=== PATIENT | male | born 1985 | race Caucasian/White ===

== ENCOUNTER 2019-05-28 19:49 | Emergency (ER) | payer BC ==
[~2019-05-28] VITALS: Ht 172.7 cm; Wt 84.7 kg
[2019-05-28 19:53] VITALS: Ht 172.7 cm; Wt 84.7 kg
[2019-05-28] MEDS ORDERED: ALBUTEROL 0.083% (NEB) 2.5 MG/3 ML AMP NEB STA (21:23)
[2019-05-28] MEDS ORDERED: IPRATROPIUM (NEB) 0.5 MG/2.5 ML AMP NEB STA (21:23)
[2019-05-28] MEDS ORDERED: DEXAMETHASONE 10 MG/ML 1 ML INJ IM STA (21:23)
[2019-05-28] MEDS ORDERED: ACETAMINOPHEN 160 MG/5ML CUP PO STA (21:33)
--- NOTE | 2019-05-28 22:07 | ERD ---
ER Documentation Chief Complaint Chief Complaint RIGHT GROIN PAIN RADIATES TO LOWER ABD X2DAYS; NO OTHER GI S/S HPI 34-year-old male presenting to the ED for right groin pain cough x3 days. Patient denies any burning with urination denies any penile discharge lesions or sores. Patient denies any swelling. 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 Patient states he does smoke vape pen on daily basis. Patient denies any fever chills nausea vomiting. Patient states the pain is worse when he coughs. Patient states the pain is a 6 out of 10. Patient states this is never happened to him before. Patient states he has an allergy to penicillin. ROS All systems reviewed and are negative except as per history of present illness. Medications Home Meds Active Scripts Ibuprofen* (Motrin*) 600 Mg Tab, 600 MG PO Q6, #30 TAB Prov:CALOS BOYD PA-C 05/28/19 Oympwodwixw-S-Bxnmhgjqaf Hb* (Guaifenesin* DM Syrup) 120 Ml Syrup, 10 ML PO Q4H PRN for COUGH for 7 Days, ML Prov:CALOS BOYD PA-C 05/28/19 Albuterol Sulfate* (Proair HFA*) 8.5 Gm Hfa.aer.ad, 2 PUFF INH Q4, #1 INHALER Prov:CALOS BOYD PA-C 05/28/19 Allergies Allergies: Coded Allergies: Penicillins (Verified Allergy, Unknown, RASH, 05/28/19) PMhx/Soc Medical and Surgical Hx: pt denies Medical Hx, pt denies Surgical Hx Hx Alcohol Use: Yes (OCCASIONAL) Hx Substance Use: No Hx Tobacco Use: Yes Smoking Status: Former smoker FmHx Family History: No diabetes, No coronary disease, No other Physical Exam Vitals Vital Signs Date Temp Pulse Resp B/P (MAP) Pulse Ox O2 O2 Flow FiO2 Time Delivery Rate 05/29/19 98.0 55 20 125/85 95 Room Air 00:15 (98) 05/28/19 65 20 96 21 21:42 05/28/19 98.2 70 18 138/91 96 19:53 (107) Physical Exam Const: Moderate distress . Neck: Full range of motion. No meningismus. Resp: Bilateral wheeze Cardio: Regular rate and rhythm, no murmurs Abd: Soft, non tender, non distended. Normal bowel sounds Skin: No petechiae or rashes Back: No midline or flank tenderness no inguinal hernia palpated on examination. The testicles lie in the normal position and do not appear torsed, the patient has no pain to palpation. The patient is uncircumcised male and has no penile lesions or discharge. Results 24 hrs Current Medications Medications Dose Sig/[place] Start Time Status Last (Trade) Ordered Route PRN Stop Time Admin Dose Reason Admin Albuterol 5 mg ONCE STAT 05/28/19 DC 05/28/19 (Proventil NEB 21:23 21:38 0.083% (Neb)) 05/28/19 21:27 Ipratropium 1.5 mg ONCE STAT 05/28/19 DC 05/28/19 [place] NEB 21:23 21:39 (Atrovent 05/28/19 21:27 0.02% (Neb)) 10 mg ONCE STAT 05/28/19 DC 05/28/19 Dexamethasone IM 21:23 21:32 (Decadron) 05/28/19 21:27 1,000 mg ONCE STAT 05/28/19 Cancel Acetaminophen PO 21:33 (Tylenol 05/28/19 21:34 Liquid (Ped)) Procedures/MDM Diagnostic imaging: Read by radiologist Ankita Mari, PROCEDURE: XR Chest. CLINICAL INDICATION: Cough and wheezing TECHNIQUE: PA and Lateral views of the chest were obtained. COMPARISON: None. FINDINGS: Cardiomediastinal silhouette is normal. Pulmonary vasculature is normal. Lungs and costophrenic angles are clear. Bones soft tissues are unremarkable. IMPRESSION: No evidence of acute cardiopulmonary disease. Procedures: Breathing treatment Medications given in ER: Decadron Nebulized albuterol Ipratropium Patient tolerated medication well with no adverse reactions. Patient reported improvement in pain. Medical decision makin-year-old male presenting to the ED for groin pain. Physical exam is unremarkable. Patient had no signs of hernia, the testicles remained in normal position and do not appear torsed no pain on palpation. There were no lesions or discharge coming from the penis. The patient has remained asymptomatic without urinary symptoms or blood. The patient had no CVA tenderness I have low suspicion for testicular torsion, epididymitis, kidney stone, pyelonephritis. The patient does have an O2 saturation 96% and bilateral wheezing. The patient states he smokes vape pen every single day. The patient is afebrile. The patient was given a breathing treatment and on further evaluation appears to be doing much better. His chest x-ray is more consistent with viral illness. At this time I have low suspicion for pneumonia. Advised patient needs follow-up with primary care provider regarding this visit. Advised patient symptoms worsen return to ER immediately. Patient had no further questions upon discharge in agreement to the treatment plan. Upon discharge patient states he is doing much better and no longer has pain. Prescription for home: Motrin Guaifenesin Pro Air I have discussed with the patient proper use and common side effects to expert with the medication . I advised the patient/family to speak with the pharmacist dispensing the medication to be advised of any potential drug interactions with other medication or supplements they may be taking. Discharge: At this time, patient is stable for discharge and outpatient management. I have instructed the patient to follow-up with his\her primary care physician in 1 to 2 days. I have discussed with the patient the possibility of needing to see a specialist for further work-up and imaging studies if symptoms persist. I have instructed the patient to promptly return to the ER for any new or worsening symptoms including increased pain, fever, nausea, vomiting, weakness or LOC. The patient and\or family expressed understanding of and agreement with this plan. All questions were answered. Home care instructions were provided. Disclaimer: Inadvertent spelling and grammatical errors are likely due to EHR\dictation software use and do not reflect on the overall quality of patient care. Also, please note that the electronic time recorded on the note does not necessarily reflect the actual time of the patient encounter. Departure Condition: CALOS Cortez PA-C May 28, 2019 22:07
[2019-05-28] MEDS ORDERED: IBUP-1542 PO (22:09)
[2019-05-28] MEDS ORDERED: ALBU8.5H8 INH (22:09)
[2019-05-28] MEDS ORDERED: GUAI120S25 PO (22:09)
[2019-05-29 00:15] VITALS: BP 125/85; PULSE 55; RESP 20
== END 2019-05-29 00:17 | disposition home or self-care (01) ==
LOC: FTE 19:49
DX: R10.30 Lower abdominal pain, unspecified (principal); R05 Cough; Z87.891 Personal history of nicotine dependence
CPT/HCPCS: 71046; 94664; 96372; 99284; J1100